=== PATIENT | female | born 1975 | race Caucasian/White ===

== ENCOUNTER → 2018-03-28 | Outpatient (CLI) | payer BC | LOC: CARD 11:47 | PROVIDERS: ATTEND Family Medicine | DX: R01.1 Cardiac murmur, unspecified (principal) | CPT/HCPCS: 93306 ==

== ENCOUNTER → 2018-03-29 | Outpatient (CLI) | payer BC ==
--- NOTE | 2018-03-29 12:10 | Diagnostic Imaging Report ---
Indication: Routine screening. No prior mammograms are available for comparison. This is a baseline study. 2-D and 3-D bilateral screening mammography was performed with CAD. Both breasts are heterogeneously dense, limiting the sensitivity of mammography. No mass or malignant appearing microcalcifications are seen. The axillae are unremarkable. Impression: BI-RADS category 1. No mammographic features suspicious for malignancy are identified. Dictated by: Dictated on workstation # [id number]
== END ==
LOC: RAD 07:58
PROVIDERS: ATTEND Obstetrics & Gynecology
DX: Z12.31 Encounter for screening mammogram for malignant neoplasm of breast (principal)
CPT/HCPCS: 77067

== ENCOUNTER 2018-05-04 09:48 | Outpatient (RCR) | payer BC | END 2018-08-02 | disposition home or self-care (01) | LOC: CARD 09:48 | PROVIDERS: ATTEND Internal Medicine Interventional Cardiology | DX: R00.2 Palpitations (principal); R07.9 Chest pain, unspecified | CPT/HCPCS: 93225; 93226 ==

== ENCOUNTER → 2018-05-11 | Outpatient (CLI) | payer BC ==
[2018-05-11 12:43] VITALS: BP 114/68
--- NOTE | 2018-05-11 12:43 | Cardiology Stress Test Report ---
Stress Test Report Date of Procedure/Referring: Date of Procedure: May 11, 2018 PCP Liam Vaca MD Admitting Physician Dheeraj Che MD Indications: Chest pain Baseline Heart Rate: 70 Baseline Blood Pressure: Blood Pressure Systolic: 114 Blood Pressure Diastolic: 68 Baseline EKG: Baseline EKG: sinus rhythm Summary/Conclusion: Summary: In summary, the patient started exercising with a baseline heart rate, blood pressure and EKG mentioned above Patient was able to exercise for a total of 8.48 minutes on Jose protocol, METs 10.3 Maximum heart rate 160 BPM, 89 percent of maximum predicted heart rate response. Maximum blood pressure 155/[address] elevation noted in aVR, nondiagnostic ST depressions noted in lead V4, V5. Recovery EKG Return to baseline Conclusion: 1. Borderline positive stress test. 2. Normotensive response to exercise. 3. Excellent functional capacity Copy Copies To 1: DHEERAJ CHE MD, M RIZWAN MD May 11, 2018 12:43 pm
== END ==
LOC: CARD 11:27
PROVIDERS: ATTEND Internal Medicine Interventional Cardiology
DX: R00.2 Palpitations (principal); R07.9 Chest pain, unspecified
CPT/HCPCS: 93017

== ENCOUNTER → 2018-10-02 | Outpatient (CLI) | payer BC ==
--- NOTE | 2018-10-02 16:19 | Diagnostic Imaging Report ---
INDICATION: Pain in the superior left breast. Patient reports having a recent infection of the breast. CORRELATION is made with prior mammogram from 03/29/2018. EXAM: Unilateral left 2-D and 3-D diagnostic mammography was performed. FINDINGS: Left breast is heterogeneously dense, limiting the sensitivity of mammography. No mass or malignant appearing microcalcifications are seen. Left axilla is unremarkable. IMPRESSION: BI-RADS 0. Stable left mammogram with no mammographic features suspicious for malignancy identified. Even so, directed sonographic interrogation of the area of pain in the superior left breast is recommended and will be performed today. ACR BI-RADS Category 0: Incomplete. (Needs additional imaging evaluation). Result letter will be mailed to the patient. Note: At least 10% of breast cancer is not imaged by mammography. Dictated by: Dictated on workstation # [id number]
--- NOTE | 2018-10-02 19:58 | Diagnostic Imaging Report ---
INDICATION: Left breast pain. CORRELATION is made with diagnostic mammogram earlier the same day. FINDINGS: Sonographic interrogation of the upper left breast was performed. Retroareolar region was also evaluated. No sonographic abnormality is seen. No solid or cystic mass is detected. No fluid collection is identified. IMPRESSION: BI-RADS category 1. No sonographic abnormality is identified. Clinical followup is recommended. ACR BI-RADS Category 1: Negative. Result letter will be mailed to the patient. Note: At least 10% of breast cancer is not imaged by mammography. Dictated by: Dictated on workstation # [id number]
== END ==
LOC: RAD 14:10
PROVIDERS: ATTEND Family Medicine
DX: N64.4 Mastodynia (principal)
CPT/HCPCS: 76642

== ENCOUNTER 2019-05-23 08:55 | Emergency (ER) | payer BC ==
[~2019-05-23] VITALS: Ht 165.1 cm; Wt 78.1 kg
--- NOTE | 2019-05-23 09:36 | ED General ---
General Chief Complaint: General Problems/Pain Stated Complaint: JAW PAIN, NAUSEA Nursing Triage Note: AMB TO ROOM REPORTS HAS HAD R JAW PAIN FOR 3 DAYS . THAT OTC PAIN MEDS NOT HELPING. C/O NAUSEA WITH UTI SYMPTOMS. Nursing Sepsis Screen: No Definite Risk Source of Information: Patient Exam Limitations: No Limitations History of Present Illness Date Seen by Provider: May 23, 2019 Time Seen by Provider: 09:22 Initial Comments This 43-year-old woman presents to the emergency room with 2 complaints. First, she has had pain on the left side of her face for a couple of days that she presumes to be dental pain. Last night pain was unbearable and disrupted her sleep. She took Tylenol and ibuprofen without much benefit. She is afebrile. Pain seems to be focused beneath the left maxilla. She has had a root canal in the twos in this region in the recent past. Second, she complains of some urinary discomfort and wonders if she has a urinary tract infection. She took some Azo twtt-kce-jvsteuv for that. She has some nausea associated with these other symptoms. Allergies and Home Medications Allergies Coded Allergies: Ranitidine (Verified Allergy, 11/04/09) Patient Home Medication List Home Medication List Reviewed: Yes Review of Systems Review of Systems Constitutional: no symptoms reported EENTM: see HPI Respiratory: no symptoms reported Cardiovascular: no symptoms reported Gastrointestinal: see HPI Genitourinary: see HPI : No LMP: May 04, 2019 Musculoskeletal: no symptoms reported Skin: no symptoms reported Psychiatric/Neurological: No Symptoms Reported Hematologic/Lymphatic: No Symptoms Reported Past Zynyunk-Runklu-Leokji Hx Past Med/Social Hx: Reviewed and Corrections made Patient Social History Alcohol Use: Denies Use Recreational Drug Use: No Smoking Status: Never a Smoker Recent Foreign Travel: No Contact w/Someone Who Travel: No Recent Infectious Disease Expo: No Recent Hopitalizations: Yes (two childbirth's 1996 and 1999, appendectomy 1986) Past Medical History Surgeries: Yes (appendectomy) Appendectomy Respiratory: No Cardiac: Yes (inappropriate sinus tachycardia) Neurological: No : No Last Menstrual Period: May 04, 2019 Reproductive Disorders: No Genitourinary: No Gastrointestinal: Yes Gastroesophageal Reflux Musculoskeletal: Yes Endocrine: No Cancer: No Psychosocial: No Blood Disorders: Yes Physical Exam Vital Signs Vital Signs - First Documented 05/23/19 09:03 Temp 36.6 Pulse 55 Resp 18 B/P (MAP) 108/ Pulse Ox 95 O2 Delivery Room Air Capillary Refill : Less Than 3 Seconds Height, Weight, BMI Height: '" Weight: lbs. oz. kg; 28.00 BMI Method: General Appearance: No Apparent Distress, WD/WN HEENT: PERRL/EOMI, TMs Normal, Pharynx Normal, Other (mild tenderness inferior to the left maxilla. Small dental caries and fillings noted on multiple left- sided molars. No obvious superficial inflammation or abscess seems.) Neck: Normal Inspection, Non Tender; No Lymphadenopathy (L), No Lymphadenopathy (R) Respiratory: Lungs Clear, Normal Breath Sounds, No Accessory Muscle Use, No Respiratory Distress Progress/Results/Core Measures Suspected Sepsis Recent Fever Within 48 Hours: No Infection Criteria Present: None New/Unexplained Altered Menta: No Sepsis Screen: No Definite Risk SIRS Temperature: Pulse: 55 Respiratory Rate: 18 Blood Pressure 108 / Mean: Results/Orders Lab Results Laboratory Tests Test 05/23/19 09:34 Range/Units Urine Color ORANGE Urine Clarity CLEAR Urine pH 5.5 5-9 Urine Specific Boomer >=1.030 1.016-1.022 Urine Protein 1+ H NEGATIVE Urine Glucose (UA) TRACE H NEGATIVE Urine Ketones NEGATIVE NEGATIVE Urine Nitrite POSITIVE NEGATIVE Urine Bilirubin 1+ H NEGATIVE Urine Urobilinogen 4.0 < = 1.0 MG/DL Urine Leukocyte Esterase NEGATIVE NEGATIVE Urine RBC (Auto) NEGATIVE NEGATIVE Urine RBC NONE /HPF Urine WBC 10-25 H /HPF Urine Squamous Epithelial Cells 10-25 H /HPF Urine Crystals NONE /LPF Urine Bacteria FEW H /HPF Urine Casts NONE /LPF Urine Mucus NEGATIVE /LPF Urine Culture Indicated YES My Orders Orders - LISA TAPIA MD Ua Culture If Indicated (05/23/19 09:22) Urine Culture (05/23/19 09:34) Accucheck Stat ONCE (05/23/19 10:09) Vital Signs/I&O 05/23/19 09:03 Temp 36.6 Pulse 55 Resp 18 B/P (MAP) 108/ Pulse Ox 95 O2 Delivery Room Air Capillary Refill : Less Than 3 Seconds Progress Note : Time: 09:35 Progress Note Patient was seen and examined. Urinalysis is pending. Patient declines nausea medication at this time. Departure Impression Primary Impression: Pain, dental Additional Impressions: Urinary tract infection Qualified Codes: N39.0 - Urinary tract infection, site not specified Glucosuria Family history of diabetes mellitus (DM) Disposition: 01 HOME, SELF-CARE Condition: Stable Departure-Patient Inst. Decision time for Depature: 10:15 Referrals: JIMENA CHE MD (PCP/Family) Primary Care Physician Patient Instructions: Dental Pain (DC), Urinary Tract Infection, Adult (DC) Add. Discharge Instructions: Drink plenty of clear liquids. Complete your antibiotics as prescribed. Please follow-up with a dentist as soon as possible for further evaluation of your dental pain. For dental pain you may take ibuprofen up to 600 mg every 6 hours and Tylenol (acetaminophen) up to 1000 mg every 6 hours. Add Ultram as prescribed for pain not controlled by sqre-ymr-ygbxdwy medications. You had a small amount of sugar in your urine. With your family history of diabetes I recommend routine screening yearly or every other year with your primary care provider. I also recommended eating a lower carbohydrate diet and regular exercise. Follow-up with your primary care provider after 48 hours to review urine culture results. This will ensure you're taking an appropriate antibiotic for your urinary tract infection. Return to care if you have worsening symptoms despite treatment. All discharge instructions reviewed with patient and/or family. Voiced understanding. Scripts Tramadol HCl (Ultram) 50 Mg Tablet 50 MG PO QID, #20 TAB Prov: LISA TAPIA MD 05/23/19 Cephalexin (Keflex) 500 Mg Capsule 500 MG PO QID, #40 CAP Prov: LISA TAPIA MD 05/23/19 LISA TAPIA MD May 23, 2019 09:36
[2019-05-23 09:43] LABS: CLARITY,URINE CLEAR; COLOR,URINE ORANGE; GLUCOSE, URINE (UA) TRACE (NEGATIVE); KETONES,URINE NEGATIVE (NEGATIVE); LEUKOCYTE ESTERASE ,URINE NEGATIVE (NEGATIVE); NITRITE,URINE POSITIVE (NEGATIVE); PH,URINE 5.5 (5-9); PROTEIN,URINE 1+ (NEGATIVE)
[2019-05-23 10:05] LABS: BACTERIA,URINE FEW /HPF; BILIRUBIN,URINE 1+ (NEGATIVE)
[2019-05-23] MEDS ORDERED: TRAM-42 PO (10:19)
[2019-05-23] MEDS ORDERED: CEPH-507 PO (10:19)
[2019-05-23 10:51] VITALS: BP 108/72
== END 2019-05-23 10:50 | disposition home or self-care (01) ==
LOC: EDUNIT# 08:55 → ER 08:56
DX: K08.89 Other specified disorders of teeth and supporting structures (principal); N39.0 Urinary tract infection, site not specified; R81 Glycosuria; K21.9 Gastro-esophageal reflux disease without esophagitis; Z83.3 Family history of diabetes mellitus; Z88.8 Allergy status to other drugs, medicaments and biological substances; Z90.49 Acquired absence of other specified parts of digestive tract
CPT/HCPCS: 81000; 82962; 87077; 87088; 87186

== ENCOUNTER → 2019-07-10 | Outpatient (CLI) | payer BC ==
[~2019-07-10] MED LIST: CEPH-507 PO; TRAM-42 PO
--- NOTE | 2019-07-10 10:19 | Diagnostic Imaging Report ---
INDICATION: Screening The current study was also evaluated with a Computer Aided Detection (CAD) system. 3-D Tomographic imaging was also performed. Comparison made with prior examination from 10/02/2018 and 03/29/2018 FINDINGS: The fibroglandular tissue is heterogeneously dense bilaterally. There is no dominant mass, spiculated lesion or suspicious calcification identified. Skin, nipples and axilla are unremarkable. IMPRESSION: Category 1 negative ACR BI-RADS Category 1: Negative. Result letter will be mailed to the patient. Note: At least 10% of breast cancer is not imaged by mammography. Dictated by: Dictated on workstation # [id number]
== END ==
LOC: RAD 08:58
PROVIDERS: ATTEND Obstetrics & Gynecology
DX: Z12.31 Encounter for screening mammogram for malignant neoplasm of breast (principal)
CPT/HCPCS: 77067

== ENCOUNTER → 2020-09-12 | Outpatient (CLI) | payer BC ==
--- NOTE | 2020-09-12 12:23 | Diagnostic Imaging Report ---
INDICATION: Routine screening. Comparison is made with prior mammogram from 07/10/2019 and 03/29/2018. 2-D and 3-D bilateral screening mammography was performed with CAD. Both breast are heterogeneously dense, limiting the sensitivity of mammography. The parenchymal pattern is stable. No mass or malignant appearing microcalcifications are seen. Axillae are unremarkable. IMPRESSION: BI-RADS Category 1 No mammographic features suspicious for malignancy are identified. ACR BI-RADS Category 1: Negative. Result letter will be mailed to the patient. Note: At least 10% of breast cancer is not imaged by mammography. Dictated by: Dictated on workstation # [id number]
== END ==
LOC: RAD 08:23
PROVIDERS: ATTEND Obstetrics & Gynecology
DX: Z12.31 Encounter for screening mammogram for malignant neoplasm of breast (principal)
CPT/HCPCS: 77063; 77067

== ENCOUNTER → 2022-01-22 | Outpatient (CLI) | payer BC ==
--- NOTE | 2022-01-26 10:23 | Diagnostic Imaging Report ---
Indication: Routine screening. Comparison is made with prior mammogram 09/12/2020 and 07/10/2019. 2-D and 3-D bilateral screening mammography was performed with CAD. CAD is utilized. The current study was also evaluated with a Computer Aided Detection (CAD) system. Both breasts are heterogeneously dense, limiting the sensitivity of mammography. The parenchymal pattern is stable. No mass or malignant-appearing microcalcifications are seen. Axillae are unremarkable. IMPRESSION: BI-RADS Category 1 No mammographic features suspicious for malignancy are identified. ACR BI-RADS Category 1: Negative. Result letter will be mailed to the patient. Note: At least 10% of breast cancer is not imaged by mammography. Dictated by: Dictated on workstation # [id number]
== END ==
LOC: RAD 11:27
PROVIDERS: ATTEND Family Medicine
DX: Z12.31 Encounter for screening mammogram for malignant neoplasm of breast (principal)
CPT/HCPCS: 77063; 77067